=== PATIENT | male | born 2005 | race Caucasian/White ===

== ENCOUNTER 2024-10-16 10:04 | Emergency (ER) | payer OTHER, SELFPAY ==
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
[2024-10-16 10:11] VITALS: BP 151/110; PULSE 67; RESP 16; O2SAT 100
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
[2024-10-16 10:13] VITALS: BP 150/104; PULSE 68; RESP 18; TEMP 36.8; O2SAT 100
[2024-10-16 10:22] VITALS: RESP 18; O2SAT 100
--- OUTSIDE RECORDS SUMMARY | 2024-10-16 10:34 | XMS_ITS | Referral Summary ---
Author Organization [facility] Address [address] [place] [address] Care Team Providers Care Police District Switchboard Operator Name Role Phone Melissa Tomlin MD Primary Care Provider [phone] Allergies No known active allergies Medications escitalopram (LEXAPRO) 20 mg tablet 04/03/2020 Active lisinopriL (PRINIVIL,ZESTRIL ) 40 mg tabletIndications :Primary hypertension Take 1 tablet by mouth once daily 90 tablet 02/09/2024 Active amLODIPine (NORVASC) 5 mg tablet Take 1 tablet by mouth once daily 30 tablet 05/14/2024 Active Active Problems Problem Noted Date Diagnosed Date Essential hypertension 12/16/2019 Social History Tobacco Use Types Packs/Day Years Used Date Smoking Tobacco: Never Smokeless Tobacco: Never Sex and Gender Information Value Date Recorded Sex Assigned at Not on file 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 Gender Identity Not on file Sexual Orientation Not on file Last Filed Vital Signs Vital Sign Reading Time Taken Comments Blood Pressure 124/72 04/01/2023 1:19 PM CDT Pulse 65 04/01/2023 1:19 PM CDT Temperature 36.9 C (98.4 F) 02/26/2022 2:29 PM CDT Respiratory Rate 24 04/01/2023 1:19 PM CDT Oxygen Saturation 97% 04/01/2023 1:19 PM CDT Inhaled Oxygen Concentration - - Weight 97.8 kg (215 lb 9.8 oz) 04/01/2023 1:19 P M CDT Height 185.8 cm (6' 1.15 ) 02/26/2022 2:29 PM CD T Body Mass Index 28.33 02/26/2022 2:29 PM CDT Plan of Treatment Not on file Insurance [facility] [place] PPO [facility] ANTHEM ACCESS BLUE ACCESS OOS Member Subscriber Plan / Payer ( fective 2020-Present) Name:Sixto Coates Relation to Subscriber:Self Name:Sixto Coates Payer ID:[id number] (NAIC) Type:[employer] Address: [address] PPO Care Teams Police District Switchboard Operator Relationship Specialty Start Date End Date Melissa Tomlin MD PCP - General Pediatrics 04/28/19
--- OUTSIDE RECORDS SUMMARY | 2024-10-16 10:34 | XMS_ITS | CONTINUITY OF CARE DOCUMENT ---
Author Name nathanael huffman Address Unknown Organization [facility] Address [address] [place] [address] Phone [phone] Care Team Providers Care Anthropologist Name Role Phone Frida HOFFMAN, Elizabeth Kelly Unavailable LANCE ROMERO MD Unavailable LANCE ROMERO MD Unavailable [phone] PROBLEMS Condition Status Date Provider Notes Cardiology examination active Elizabeth garcía MD Hypertension active Elizabeth Galicia MD Anxiety active Elizabeth Galicia MD (Hist ory of) Dizziness active Elizabeth Galicia MD ENCOUNTERS Date Type Provider Location Encounter Diag nosis - In-person encounter Office Visit Elizabeth Galicia MD [place] [facility] Cardiology examinationHypertensionAnxietyDizziness VITAL SIGNS Date Observation Value Provider Body Mass Index (Ratio) 29.01 kg/m2 Davina Galicia MD blood pressure, diastolic 84 mm[Hg] Corina nkLogjovanna blood pressure, systolic 126 mm[Hg] Peyton Appiahogjovanna blood pressure, cuff size regular Rigoberto Joy blood pressure, diastolic 84 mm[Hg] Rigoberto Joy blood pressure, systolic 126 mm[Hg] Jasper Joy oxygen saturation, oximetry 99 % Ruby Joy respiratory rate E&M 12 /min Ruby Joy pulse rate 77 /min Ruby Joy weight E&M 226 [lb_av] Ruby Joy height E&M 74 [in_i] Ruby Joy HISTORY OF MEDICATION USE Medication Status Instructions Dates Provider Indications Com ments amlodipine 5 mg tablet active TAKE 1 TABLET BY MOUTH EVERY NIGHT Elizabeth Galicia MD lisinopril 40 mg tablet active Take 1 tablet by mouth once a day 07/14 Katia Kerr RN hydrochlorothiazide 12.5 mg tablet active TAKE 1 TABLET BY MOUTH EVERY DAY 03/17 Elizabeth Galicia MD amlodipine 5 mg tablet completed Take 1 tablet by mouth once daily - Elizabeth Galicia MD escitalopram oxalate 20 mg tablet active Take 1 tablet by mouth once a day Ruby Joy lisinopril 40 mg tablet completed TAKE 1 TABLET BY MOUTH EVERY DAY - 07/14 Ingrid Segovia SOCIAL HISTORY Date Observation Value Provider drug use no Elizabeth hammond MD alcohol use, average drinks per day cain Galicia MD alcohol use yes Elizabeth hammond MD smoking status Never smoker Elizabeth garcía MD INSURANCE PROVIDERS Payer name Policy type / Coverage type [place] red green party ID [id number] Commercial insurance company [id number] ADVANCE DIRECTIVES Name Date DISCUSSED - NO DECISION MADE TREATMENT PLAN Date Name Performer Cardiology:Check ech o for LVH, long standing hx of HTN F Hx of HTN Elizabeth Galicia MD Cardiology:R/o LVH w ith echo A dd HCTZ 12.5mg once daily B P today: 126/84 His updated medication list for this problem includes: Amlodipine 5 Mg Tablet (Amlodipine) ..... Take 1 tablet by mouth every day Lisinopril 40 Mg Tablet (Lisinopril) ..... Take 1 tablet by mouth every day Elizabeth Galicia MD Cardiology:on lexapro 20mg once daily Elizabeth Galicia MD Date Name Complete Echo Complete Echo HISTORY OF PROCEDURES Procedure Date Procedure Name Provider Procedure Notes S tatus EKG Elizabeth Galicia MD compl eted
--- OUTSIDE RECORDS SUMMARY | 2024-10-16 10:34 | XMS_ITS | Clinical Summary ---
Author Organization [facility] Address [address] [place] [address] Care Team Providers Care Cattyman Name Role Phone Melissa Tomlin MD Primary Care Provider [phone] Allergies No known active allergies Medications escitalopram (LEXAPRO) 20 mg tablet 04/03/2020 Active lisinopriL (PRINIVIL,ZESTRIL ) 40 mg tabletIndications :Primary hypertension Take 1 tablet by mouth once daily 90 tablet 02/09/2024 Active amLODIPine (NORVASC) 5 mg tablet Take 1 tablet by mouth once daily 30 tablet 05/14/2024 Active Active Problems Problem Noted Date Diagnosed Date Essential hypertension 12/16/2019 Medical History Medical History Date Comments Hypertension Anxiety Family History Medical History Relation Name Comments Hypertension Father Family history of hypertension - (Added by TW Conv) Relation Name Status Comments Father Social History Tobacco Use Types Packs/Day Years Used Date Smoking Tobacco: Never Smokeless Tobacco: Never Sex and Gender Information Value Date Recorded Sex Assigned at Not on file 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 Gender Identity Not on file Sexual Orientation Not on file Obstetrics History Last Filed Vital Signs Vital Sign Reading [...] 02/26/2022 2:29 PM CDT Plan of Treatment Health Maintenance Due Date Last Done Comments Depression Screening 2003 Hepatitis C Screening 2003 DTaP/Tdap/Td Vaccine (6 - Tdap) 2014 01/29/2008, 05/18/2004, 2003, Additional history exists Meningococcal B Vaccine (2 o f 2 - Trumenba SCDM 2-dose series) 10/01/2020 04/03/2020 Regular Well Visit/Exam 18-64 2021 Covid-19 Vaccine (2023-2 5 season) 2024 07/23/2021, 04/28/2021 Influenza Vaccine (#1) 2024 04/03/2020 Hepatitis B Screening Completed 2003 , 2003, 2003 Pneumococcal vaccine <65 Completed 005, 2003, 2003 Varicella Vaccines Completed 01/29/2008, 01/26/2004 HPV Vaccines Completed 10/14/2015, 01/28/2014 Meningococcal Vaccine Completed 04/03/2020 Insurance [facility] PPO BLUE [place]ESS [place] [facility] ACCESS [employer] OOS Member Subscriber Plan / Payer (Ef fective 2020-Present) Name:Sixto Coates Relation to Subscriber:Self Name:Sixto Coates Payer ID:[id number] (NAIC) Type:[employer] Address: [phone] PPO Care Teams Cattyman Relationship Specialty Start Date End Date Melissa Tomlin MD PCP - General Pediatrics 04/28/19
[2024-10-16 12:20] VITALS: BP 134/99; PULSE 64; RESP 18; O2SAT 100
== END 2024-10-16 12:32 | disposition home or self-care (01) ==
PROVIDERS: Emergency Provider Emergency Medicine
DX: S09.90XA Unspecified injury of head, initial encounter (principal); S19.9XXA Unspecified injury of neck, initial encounter; G93.0 Cerebral cysts; I10 Essential (primary) hypertension; Y04.0XXA Assault by unarmed brawl or fight, initial encounter
CPT/HCPCS: 70450; 72125; 99284; L0140

== ENCOUNTER 2025-01-28 12:20 | Emergency (ER) | payer OTHER, SELFPAY ==
--- NOTE | 2025-01-28 12:22 | ED.GENADULT ---
HPI - General Adult General Chief complaint: Skin/Abscess/Foreign Body Stated complaint: rash/eye drainage/facial swelling Time Seen by Provider: 01/28/25 12:28 Source: patient, RN notes reviewed and old records reviewed Mode of arrival: ambulatory Limitations: no limitations History of Present Illness HPI narrative: 20-year-old male presents to [facility] with complaints of a rash he describes is itchy to the left axilla, proximal inner upper arm. Also reports he has had a swollen face this morning, discharge from the eyes. Describes him as being very itchy. Itchy eyes x1 week Rash x2 days Has been taking cool showers, applying lotion to the arm which he reports symptoms are getting better. Related Data Home Medications ?Medication ?Instructions ?Recorded ?Confirmed ?Last Taken ?Type amlodipine 5 mg tablet 5 mg PO DAILY 11/25/24 Unknown History escitalopram oxalate 20 mg tablet 20 mg PO DAILY 11/25/24 Unknown History lisinopril 40 mg tablet 40 mg PO DAILY 11/25/24 Unknown History Allergies Allergy/AdvReac Type Severity Reaction Status Date / Time No Known Allergies Allergy Verified 01/28/25 12:30 Review of Systems Review of Systems: All systems reviewed & are unremarkable except as noted in HPI and below Constitutional: Constitutional: Reports no additional constitutional complaints Eyes: Eyes: Reports as per HPI ENT: Reports system reviewed and no additional complaints, except as documented Cardiovascular: Cardiovascular: Reports no additional cardiovascular complaints, Denies chest pain and Denies dyspnea Respiratory: Respiratory: Reports no additional respiratory complaints, Denies chest congestion, Denies cough and Denies dyspnea Musculoskeletal: Musculoskeletal: Reports no additional musculoskeletal complaints Integumentary/Breasts: Skin/Breast: Reports as per HPI [facility] Past Medical History Medical History HTN (hypertension) Family History Family History Father Hypertension Heart disease Mother History of cancer Sibling Diabetes mellitus Social History Social History Smoking status: Unknown if ever smoked Alcohol intake: current Alcohol use details: socially Substance use: never Substance use type: does not use Do You Feel Safe in your Home?: Yes Lack of Transportation: No Lack of Food: Never True Current Housing: I Have Housing Concerned About Future Housing: No Difficulty Paying Gas/Electric Bills: No Difficulty Paying for Meds: No Currently Unemployed: No Education: High School Diploma/GED Difficulty w/ Childcare or Family Care: No Comments At the time of my signature, I reviewed and agree with the nursing past medical, surgical, social, and family history. There is no relevant family history pertinent to the patient complaint. Exam Const: General: cooperative, healthy appearing, comfortable, no acute distress, well developed, alert and well nourished Nutritional Appearance: well nourished Orientation/consciousness: patient oriented x3 Limitations: no limitations HENMT: Head: normal to inspection Ears: hearing grossly normal bilaterally, external ears normal, TM's normal bilaterally, EAC's normal, mastoids normal and no periauricular adenopathy Face/Nose/Sinus: Normal external nose present Mouth: Yes Normal oral and palatal mucosa present, Yes lip normal, Yes tongue normal and Yes moist mucous membranes Throat: posterior oropharynx normal, uvula midline and no uvular edema Eyes: General: appearance normal, both eyes and all related structures Alignment and Position: alignment normal Periorbital: periorbital findings normal Eyelids: eyelids normal Conjunctivae: conjunctivae normal Sclera: sclerae normal Pupils: Equal, round and reactive pupils present EOM: EOMs intact bilaterally Neck: Neck: normal visual inspection, full ROM, no lymphadenopathy and no meningeal signs Chest: Chest palpation & inspection: normal inspection of the chest Resp: Effort & Inspection: normal respiratory effort and able to speak in complete sentences Auscultation: clear to auscultation bilaterally, no crackles, no rales, no rhonchi and no wheezes Cardio: Rate: regular rate Skin: General skin exam: normal color and no rashes or lesions noted Other: [place] dry skin, left inner upper arm Neuro: General: patient oriented x3, gait normal, moves all extremities and no meningeal signs Cognition (Neuro): normal cognition Speech: normal speech Gait exam (Neuro): Normal gait present Extrem: General: normal to inspection, full ROM, capillary refill normal and normal gait Psych: Appearance: grossly normal and well kempt Mental Status: mental status grossly normal Speech and movement: Normal speech and movement present and Clear speech present Affect: normal affect Attitude: cooperative Course Course Level of Care: Express Care Visit Vital Signs Vital signs: Vital Signs Temperature 98.4 F 01/28/25 12:30 Pulse Rate 76 01/28/25 12:30 Respiratory Rate 14 01/28/25 12:30 Blood Pressure 152/90 H 01/28/25 12:30 Pulse Oximetry 100 01/28/25 12:30 Oxygen Delivery Room Air 01/28/25 12:30 Temperature 98.4 F 01/28/25 12:30 Pulse Rate 76 01/28/25 12:30 Respiratory Rate 14 01/28/25 12:30 Blood Pressure 152/90 H 01/28/25 12:30 Pulse Oximetry 100 01/28/25 12:30 Oxygen Delivery Room Air 01/28/25 12:30 Reviewed Medical Decision Making MDM Narrative Medical decision making narrative: Patient sitting comfortably in exam room. Nontoxic, vitals stable. Patient in no acute distress A rash to the left upper inner arm. Concern for conjunctivitis. No acute findings other than possible dermatitis to the inner upper arm. Patient appropriate for outpatient treatment and follow Discharge instructions reviewed with patient, as well as provided in writing per nursing staff. The instructions also include specific and strict return/GO TO THE ER as well as f/u information. All questions have been answered, and the patient deny any further questions with discharge and discharge plan. Some parts of this dictation were generated by voice recognition software and may contain typographical and/or grammatical inaccuracies. Differential Diagnosis Differential Diagnosis: Dermatitis, conjunctivitis, cellulitis Medical Records Medical records reviewed: Yes I reviewed the external patient's medical records. Vital Signs Vital Signs: Vital Signs Temperature 98.4 F 01/28/25 12:30 Pulse Rate 76 01/28/25 12:30 Respiratory Rate 14 01/28/25 12:30 Blood Pressure 152/90 H 01/28/25 12:30 Pulse Oximetry 100 01/28/25 12:30 Oxygen Delivery Room Air 01/28/25 12:30 Temperature 98.4 F 01/28/25 12:30 Pulse Rate 76 01/28/25 12:30 Respiratory Rate 14 01/28/25 12:30 Blood Pressure 152/90 H 01/28/25 12:30 Pulse Oximetry 100 01/28/25 12:30 Oxygen Delivery Room Air 01/28/25 12:30 Reviewed Lab Data Lab results reviewed: Yes I reviewed the patient's lab results. Labs: Reviewed Critical Care Time Critical Care Time Critical Care Time: No Discharge Plan Discharge Clinical Impression: Dermatitis, Irritation of both eyes Patient Disposition: Home Condition: Stable Instructions: Antibiotic Form, Allergies (ED), Dermatitis (ED) Additional Instructions: Today your blood pressure was 152/90. Is recommended you follow-up with your heart doctor or your primary care provider to have this rechecked within 2 weeks Take Zyrtec or Claritin every day Use either Pataday or Zaditor for the itchy eyes Apply a good moisturizing lotion to the arm Use the cream as prescribed Use the eye ointment as prescribed Avoid hot showers, Take cool showers. Hot showers will make rashes worse Apply cool compresses every 2-3 hours for 15 minutes Go to the ER for new or worsening symptoms such as shortness of breath. Patient Language: Chinese Prescriptions: New erythromycin 5 mg/gram (0.5 %) ointment 0.5 inch EACH EYE TID Qty: 3.5 0RF triamcinolone acetonide 0.1 % cream 1 applic topical BID Qty: 15 0RF No Action amlodipine 5 mg tablet 5 mg PO DAILY lisinopril 40 mg tablet 40 mg PO DAILY escitalopram oxalate 20 mg tablet 20 mg PO DAILY Follow-up/Referrals: PHYSICIAN,RECEPTION INTERVIEWER [Primary Care Provider] - Time of Disposition: 12:42
--- OUTSIDE RECORDS SUMMARY | 2025-01-28 12:23 | XMS_ITS | Referral Summary ---
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 Gender Identity Not on file Sexual Orientation [...] P M CDT Height 185.8 cm (6' 1.15) 02/26/2022 2:29 PM CD T Body Mass Index 28.33 02/26/2022 2:29 PM CDT Plan of Treatment Not on file Insurance [facility] PPO [facility]/PP[facility] Address: [address] [place] [address] [facility] ANTHEM ACCESS BLUE ACCESS OOS Member Subscriber Plan / Payer ( fective 2020-Present) Name:Sixto Coates Relation to Subscriber:Self Name:Sixto Coates Payer ID:[id number] (NAIC) Type:[employer] Address: [address] PPO Care Teams Toy Assembler Relationship Specialty Start Date End Date Melissa Tomlin MD PCP - General Pediatrics 04/28/19
--- OUTSIDE RECORDS SUMMARY | 2025-01-28 12:23 | XMS_ITS | Clinical Summary ---
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 Gender Identity Not on file Sexual Orientation [...] season) 2024 07/23/2021, 04/28/2021 Influenza Vaccine (#1) 2025 04/03/2020 Hepatitis B Screening Completed 2003 , 2003, 2003 Pneumococcal vaccine <65 Completed 005, 2003, 2003 Varicella Vaccines Completed 01/29/2008, 01/26/2004 HPV Vaccines Completed 10/14/2015, 01/28/2014 Insurance [facility] PPO BLUE [place]ESS [place] [facility] ACCESS [employer] OOS Member Subscriber Plan / Payer (Ef fective 2020-Present) Name:Sixto Coates Relation to Subscriber:Self Name:Sixto Coates Payer ID:[id number] (NAIC) Type:[employer] Address: [address] PPO Care Teams Emergency Room Clinician Relationship Specialty Start Date End Date Melissa Tomlin MD PCP - General Pediatrics 04/28/19
[2025-01-28 12:30] VITALS: BP 152/90; PULSE 76; RESP 14; TEMP 36.9; O2SAT 100
== END 2025-01-28 12:46 | disposition home or self-care (01) ==
PROVIDERS: Emergency Provider Nurse Practitioner; Referring Provider Emergency Medicine
DX: L30.9 Dermatitis, unspecified (principal); H57.89 Other specified disorders of eye and adnexa; I10 Essential (primary) hypertension
CPT/HCPCS: 99213; G0463